=== PATIENT | male | born 1985 | race Hispanic/Latino ===

== ENCOUNTER 2016-10-05 07:19 | Emergency (ER) | payer OTHER ==
[2016-10-05 07:29] VITALS: O2SAT 98
[2016-10-05] MEDS ORDERED: Epinephrine /Lidocaine HCL 1:100,000/2% 30 ml INJ ONE (08:08)
[2016-10-05] MEDS ORDERED: Lidocaine 1% Inj (20ml) ONE (08:16)
--- NOTE | 2016-10-05 08:42 | C.PDOC ---
History Of Present Illness 31y/o male comes in with complaints of a laceration to the right fourth digit, while cleaning a drinking glass, which broke. Denies nausea/vomiting, fevers, or any other associated symptoms. No other complaints at this time. Right hand dominant. No change in sensation. - HPI Time Seen by Provider: 10/05/16 07:58 Chief Complaint (Nursing): Trauma History Per: Patient History/Exam Limitations: no limitations Injury Occurred (Timing): Just Before Arrival Past Medical History Reviewed: Historical Data, Nursing Documentation, Vital Signs Vital Signs: Last Vital Signs Temp 98.1 F 10/05/16 09:19 Pulse 65 10/05/16 09:19 Resp 17 10/05/16 09:19 BP 111/80 10/05/16 09:19 Pulse Ox 98 10/05/16 09:24 Family History: States: No Known Family Hx Other Family History: Non-contributory - Social History Hx Alcohol Use: No Hx Substance Use: No - Immunization History Hx Tetanus Toxoid Vaccination: No Hx Influenza Vaccination: No Hx Pneumococcal Vaccination: No Review Of Systems Gastrointestinal: Negative for: Nausea, Vomiting Skin: Positive for: Other (lact to right fourth finger) Neurological: Negative for: Weakness, Numbness Physical Exam - Physical Exam Appears: Non-toxic, No Acute Distress Skin: Warm, Dry, No Rash, Other (2CM L-SHAPED, IRREGULAR LACERATION TO ULNAR ASPECT OF L4TH DIGIT.) Head: Atraumatic, Normacephalic Eye(s): bilateral: Normal Inspection, EOMI Nose: Normal Oral Mucosa: Moist Chest: Symmetrical Respiratory: No Accessory Muscle Use Extremity: Normal ROM, No Tenderness, Capillary Refill (<2 sec) Neurological/Psych: Oriented x3, Normal Speech ED Course And Treatment O2 Sat by Pulse Oximetry: 98 Progress Note: Discussed wound care, check and suture removal. Medical Decision Making Medical Decision Making: PROCEDURE: LACERATION REPAIR Performed by the emergency provider Location: Alnar aspect L4th digit Length: 2 cm Description: V-shaped. Irregular Distal CMS: Normal. No deficits. Neurovascularly intact. Anesthesia: Lidocaine 1% Preparation: The wound was cleaned with NS and [place]. The area was prepped and draped in the usual sterile fashion. Exploration: The wound was explored and no foreign bodies were found. Procedure: The wound was closed with 5-0 nylon. There was appropriate approximation. In total, 3sutures were used. Post-Procedure: Good closure and hemostasis. The patient tolerated the procedure well and there were no complications. CSM remains intact. Post procedure dressing applied. Disposition - Disposition Disposition: HOME/ ROUTINE Disposition Time: 08:40 Condition: STABLE Additional Instructions: Keep area clean and dry. Wound check in 2 days. Suture removal in 10 days. Watch for signs of infection including redness, swelling and discharge. If any these arise, return to ER right away. Prescriptions: Bacitracin OINT 1 applic TP BID #1 tube Instructions: Finger Laceration (ED) Forms: Work Excuse - Clinical Impression Clinical Impression: Finger laceration - PA / EDGER AUTOMATIC / Resident Statement MD/DO has reviewed & agrees with the documentation as recorded. - Scribe Statement The provider has reviewed the documentation as recorded by the Yancy Gallardo
[2016-10-05] MEDS ORDERED: Bacitracin 500 Units/gm Oint Foilpak UD ONE (08:55)
[2016-10-05 09:20] VITALS: BP 111/80; PULSE 65; RESP 17; TEMP 98.1
--- NOTE | 2016-10-05 12:59 | RAD ---
Right hand 4th digit three views History: Injury. Comparison: None available. Findings: No evidence for acute displaced fracture or dislocation. Visualized joint spaces appear preserved. No discrete radiopaque foreign body visualized. Impression: Negative acute. If pain persists, consider MRI.
== END 2016-10-05 09:20 | disposition home or self-care (01) ==
LOC: C.ER 07:19
DX: S61.214A Laceration without foreign body of right ring finger without damage to nail, initial encounter (principal); W25.XXXA Contact with sharp glass, initial encounter; Y93.G1 Activity, food preparation and clean up; Y92.89 Other specified places as the place of occurrence of the external cause; Z23 Encounter for immunization

== ENCOUNTER 2018-09-19 13:57 | Emergency (ER) | payer BC ==
[2018-09-19 14:04] VITALS: BP 140/87; PULSE 59; TEMP 98.7; O2SAT 97
[2018-09-19] MEDS ORDERED: Tetracaine 0.5% Ophth 2 ML BOTTLE OU ONE (14:16)
[2018-09-19] MEDS ORDERED: Fluorescein 1 mg Ophthalmic Strip ONE (14:20)
[2018-09-19] MEDS ORDERED: Tetracaine 0.5% Ophth (OR ONLY) ONE (14:20)
[2018-09-19] MEDS ORDERED: Tobramycin 0.3% OPHT SOLN OS STA (14:25)
--- NOTE | 2018-09-19 14:26 | C.PDOC ---
History Of Present Illness 33 y/o male pt presents to the ED reporting redness to his left eye. 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 Pt immediately rinse his eyes off, but noticed marked redness today. He also reports tearing of the left eye but denies any blurred vision, diplopia, eye discharge, weakness, dizziness, and headache. Chief Complaint (Nursing): Eye Problem History Per: Patient History/Exam Limitations: no limitations Onset/Duration Of Symptoms: Hrs Current Symptoms Are (Timing): Still Present Past Medical History Reviewed: Historical Data, Nursing Documentation, Vital Signs Vital Signs: Last Vital Signs Temp 98.7 F 09/19/18 14:02 Pulse 59 L 09/19/18 14:02 Resp 16 09/19/18 14:02 BP 140/87 09/19/18 14:02 Pulse Ox 97 09/19/18 14:02 Primary Care Provider: FAMILY PROVIDER,NO Family History: States: Unknown Family Hx - Social History Hx Alcohol Use: No Hx Substance Use: No - Immunization History Hx Tetanus Toxoid Vaccination: No Hx Influenza Vaccination: No Hx Pneumococcal Vaccination: No Review Of Systems Constitutional: Negative for: Fever, Chills Eyes: Positive for: Pain, Redness, Other (tearing of left eye; no eye discharge ). Negative for: Vision Change ENT: Negative for: Nose Discharge Cardiovascular: Negative for: Chest Pain Respiratory: Negative for: Shortness of Breath Musculoskeletal: Negative for: Neck Pain Skin: Negative for: Rash, Bruising Neurological: Negative for: Weakness, Headache Physical Exam - Physical Exam Appears: Non-toxic, No Acute Distress Skin: Warm, Dry Head: Atraumatic, Normacephalic Eye(s): bilateral: PERRL, EOMI, right: Normal Inspection, left: Other (between 1 o'clock to 4 o'clock subconjunctival hemorrhage; no obvious FB or uptake ) Ear(s): Bilateral: Normal Nose: No Discharge Oral Mucosa: Moist Tongue: Normal Appearing Lips: Normal Appearing Throat: No Erythema, No Exudate Neck: Normal ROM, Supple Cardiovascular: Rhythm Regular Respiratory: Normal Breath Sounds, No Accessory Muscle Use, Wheezing Neurological/Psych: Oriented x3, Normal Speech ED Course And Treatment O2 Sat by Pulse Oximetry: 97 (RA) Pulse Ox Interpretation: Normal Medical Decision Making Medical Decision Making: Plans: --[facility]- 20/50 OD 20/30 OS No obvious uptake noted with fluoroscien -- tobramycin given as prophylaxis --advised follow up with Ophtho Patient verbalizes understanding and is in agreement with plan. Patient is stable for discharge. Disposition Counseled Patient/Family Regarding: Diagnosis, Need For Followup, Rx Given - Disposition Referrals: Dalton Haywood MD [Staff Provider] - Vasiliy Almodovar [Staff Provider] - Disposition: HOME/ ROUTINE Disposition Time: 14:28 Condition: STABLE Additional Instructions: You must follow up with Ophthalmology (eye doctor) to confirm there is no foreign body in the left eye Continue eye drops four times a day Return to ED if symptoms worsen Prescriptions: Tobramycin 0.3% [Tobrex 0.3% Ophth Soln] 1 drop OS QID 7 Days #1 bottle Instructions: How to Use Eye Drops, Foreign Body in Eye (DC) Forms: [employer] Exam [employer] (Citizen Of [place]) - Clinical Impression Clinical Impression: Left eye pain, Redness of left eye, Subconjunctival hemorrhage - PA / HOME APPLIANCE TECHNICIAN / Resident Statement / has reviewed & agrees with the documentation as recorded. - Scribe Statement The provider has reviewed the documentation as recorded by the Yancy Benítez Do All medical record entries made by the Scribe were at my direction and personally dictated by me. I have reviewed the chart and agree that the record accurately reflects my personal performance of the history, physical exam, [facility] decision making, and the department course for this patient. I have also personally directed, reviewed, and agree with the discharge instructions and disposition.
[2018-09-19 14:45] VITALS: RESP 20
== END 2018-09-19 14:44 | disposition home or self-care (01) ==
LOC: C.ER 13:57
DX: H11.32 Conjunctival hemorrhage, left eye (principal); H57.89 Other specified disorders of eye and adnexa; H57.12 Ocular pain, left eye